=== PATIENT | male | born 1985 | race Caucasian/White ===

== ENCOUNTER 2023-08-23 16:02 | Emergency (ER) | payer OTHER ==
[2023-08-23 16:10] VITALS: BP 123/72; PULSE 60; RESP 18; TEMP 98.6; BMI 25.9
[2023-08-23] MEDS ORDERED: METHOCARBAMOL 500 MG TABLET ONE (19:05)
[2023-08-23] MEDS ORDERED: LIDOCAINE 4% PATCH TP ONE (19:06)
[2023-08-23] MEDS ORDERED: IBUPROFEN 400 MG TABLET (FP) PO ONE (19:06)
[2023-08-23] MEDS: IBUPROFEN 400 MG TABLET (FP) PO ONE (19:17)
[2023-08-23] MEDS: LIDOCAINE 5% TOPICAL PATCH TP ONE (19:18)
[2023-08-23] MEDS: METHOCARBAMOL 500 MG TABLET PO ONE (19:18)
== END 2023-08-23 19:18 | disposition home or self-care (01) ==
LOC: JER 16:02
DX: S20.211A Contusion of right front wall of thorax, initial encounter (principal); V43.52XA Car driver injured in collision with other type car in traffic accident, initial encounter; Y92.410 Unspecified street and highway as the place of occurrence of the external cause
CPT/HCPCS: 71046-TC-FY; 71120-TC-FY; 93005; 93010; 99284-25